=== PATIENT | female | born 1940 | race Caucasian/White ===

== ENCOUNTER 2020-10-14 11:04 | Emergency (ER) | payer OTHER, MEDICARE, SELFPAY ==
[2020-10-14 11:06] VITALS: BP 155/87; PULSE 88; RESP 22; TEMP 36.6; BMI 23.1
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
[2020-10-14] MEDS: fentaNYL 100 MCG/2 ML Ampul 50 MCG IV (11:41)
[2020-10-14] MEDS: Ondansetron 4 MG/2 ML Vial IV (11:42)
[2020-10-14 11:51] LABS: Absolute Lymphocyte Count 1.48 X10^3/uL (0.83-4.51); Basophil# 0.04 X10^3/uL; Basophil% 0.4 % (0-1); Eosinophil# 0.05 X10^3/uL; Eosinophils% 0.5 % (0-5); Hematocrit 37.3 % (37-47); Hemoglobin 12.4 g/dL (12.0-15.0); Lymphocyte # 1.48 X10^3/ul (4.0); Mean Corp Hgb Conc 33.2 g/dL (32-36); Mean Corpuscular Hgb 31.2 pg (27.0-32.0); Mean Corpuscular Volume 93.7 fL (81-99); Mean Platelet Vol. 9.2 fl (6.2-12.0); Monocyte# 0.54 X10^3/uL; Monocyte% 5.8 % (0-10); NRBC Flagged by Analyzer 0 % (0-5); Neutrophil # 6.97 X10^3/uL (2.7-7.7); Neutrophil % 75.5 % (47-70); Platelet Count 213 K/mm3 (150-450); RBC Distribution Width CV 12.1 % (11.6-14.6); RBC Distribution Width SD 42.1 fl (35.1-43.9); Red Blood Count 3.98 M/mm3 (4.2-5.4); White Blood Count 9.3 K/mm3 (4.4-11.0)
[2020-10-14 11:54] LABS: Anion Gap 4 (5-15); BUN 15 mg/dL (7-18); BUN/Creat Ratio 17.8 RATIO (10-20); Calcium,Total 9.6 mg/dL (8.5-10.1); Chloride 105 mmol/L (98-107); Creatinine, Serum 0.84 mg/dL (0.55-1.02); EST Glomerular Filtration Rate 69 mL/min (>60); Est Glom Filt Rate - Afr Amer 83 mL/min (>60); Estimated Creatinine Clearance 39.64 ml/min; Glucose 123 mg/dL (74-106); Potassium 3.6 mmol/L (3.5-5.1); Sodium Level 136 mmol/L (136-145)
[2020-10-14 13:03] VITALS: BP 136/72
[2020-10-14 13:06] VITALS: BP 136/72; PULSE 87; RESP 16; O2SAT 99
== END 2020-10-14 14:53 | disposition home or self-care (01) ==
PROVIDERS: Emergency Provider Emergency Medicine; PCP Family Medicine
DX: M54.2 Cervicalgia (principal); V89.2XXA Person injured in unspecified motor-vehicle accident, traffic, initial encounter; Y93.9 Activity, unspecified; Y92.9 Unspecified place or not applicable
CPT/HCPCS: 70450; 72125; 80048; 85025; 96374; 96375; 99285; A4216; J2405

== ENCOUNTER → 2020-12-22 11:55 | Outpatient (CLI) | payer MEDICARE, OTHER, SELFPAY ==
--- NOTE | 2020-12-22 13:35 | NEURO ---
NCS and/or EMG Patient Report Ordering Doctor: Gilberto Sniderromain Cooper presents for electrodiagnostic testing of the upper limbs. She reports numbness and tingling in the first 3 digits of the left hand and throughout the right hand. She also reports significant swelling in the right hand over the past 2 weeks. Electrodiagnostic findings: Right median motor nerve demonstrates prolonged distal latency with reduced amplitude and reduced conduction velocity. Left median motor nerve demonstrates prolonged latency with reduced amplitude and reduced conduction velocity. Ulnar motor response is normal bilaterally. Absent right median F wave. Prolonged left median F wave. On needle EMG, all muscles tested in the upper limb showed no evidence of denervation with normal motor unit action potentials. Electrodiagnostic impression: This is an abnormal study. 1. Electrodiagnostic findings demonstrate bilateral median mononeuropathy. This is consistent with a moderate to advanced bilateral carpal tunnel syndrome. 2. No electrodiagnostic evidence is noted for ulnar neuropathy.
== END ==
PROVIDERS: PCP Family Medicine; Referring Provider Family Medicine; Visit Provider Family Medicine
DX: R20.2 Paresthesia of skin (principal)
CPT/HCPCS: 95886; 95912

== ENCOUNTER 2023-05-18 17:49 | Emergency (ER) | payer MEDICARE, OTHER, SELFPAY ==
[2023-05-18 17:50] VITALS: BP 144/83; PULSE 104; RESP 16; TEMP 36.2; O2SAT 99; BMI 20.7
--- NOTE | 2023-05-18 17:52 | RAD_ITS ---
STUDY: X-RAY - RIGHT WRIST REASON FOR EXAM: Female, 83 years old. pt stated fall pain in wrist TECHNIQUE: 3 view(s) of the wrist were obtained. COMPARISON: None. FINDINGS: Normal visualized ulna. Acute mildly impacted fracture of the distal radius with mild overlapping of fracture fragments. Normal radiocarpal articulation. Normal distal radioulnar articulation. Normal carpal bones. Normal carpal articulations. Normal carpometacarpal articulation of the thumb. Normal second through fifth carpometacarpal articulations. Normal visualized metacarpal bones. Soft tissue swelling of the distal forearm. RAD/Wrist min 3 Views IMPRESSION: Acute mildly impacted distal radial fracture with mild overlapping of fracture fragments Electronically Signed: Gilberto Palacios MD at 18:12 EDT ,
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
[2023-05-18 21:00] VITALS: BP 144/104; PULSE 98; RESP 16; O2SAT 98
== END 2023-05-18 22:23 | disposition home or self-care (01) ==
PROVIDERS: Emergency Provider Emergency Medicine; PCP Family Medicine; Visit Provider Emergency Medicine
DX: S52.121A Displaced fracture of head of right radius, initial encounter for closed fracture (principal); S00.83XA Contusion of other part of head, initial encounter; W10.9XXA Fall (on) (from) unspecified stairs and steps, initial encounter; S09.8XXA Other specified injuries of head, initial encounter; E03.9 Hypothyroidism, unspecified; Z79.899 Other long term (current) drug therapy
CPT/HCPCS: 29125; 70450; 73110; 99282